=== PATIENT | female | born 1960 | race Caucasian/White ===

== ENCOUNTER 2018-02-26 10:32 | Emergency (ER) | payer BC ==
[2018-02-26] MEDS ORDERED: LEVALBUTEROL 1.25 MG/3 ML NEB ONE (11:09)
[2018-02-26] MEDS ORDERED: ACETAMINOPHEN 325 MG TABLET ONE (11:09)
--- NOTE | 2018-02-26 12:43 | RAD REPORT ---
EXAM DESCRIPTION: RAD - Chest Pa And Lat (2 Views) - 02/26/2018 11:34 am CLINICAL HISTORY: Cough, 1 pack per day smoking history COMPARISON: None. TECHNIQUE: PA and lateral views of the chest were obtained. FINDINGS: The lungs are normal volume. No peripheral mass, consolidation or failure finding. Interst itial markings are mildly prominent believed to be baseline for the patient. Small pericardial fat pa ds are present. Trachea is midline. Heart size is normal and central vasculature is within normal li mits. No pleural effusion or pneumothorax seen. No acute bony finding noted. No aortic abnormality . IMPRESSION: No acute cardiopulmonary process.
--- NOTE | 2018-02-26 12:49 | ER ---
Nurse's Notes [facility] Name: Rula Coronel Age: 57 yrs Sex: Female : 1960 Arrival Date: 02/26/2018 Time: 10:35 Bed 13 Private MD: None, None Diagnosis: Cough;Bronchitis, not specified as acute or chronic Presentation: 02/26 10:40 Presenting complaint: Patient states: Productive cough, runny nose and eyes x 5 days. jl7 Denies shortness of breath. Left wrist pain x 1 day, denies trauma. Transition of care: patient was not received from another setting of care. Onset of symptoms was February 22, 2018. Risk Assessment: Do you want to hurt yourself or someone else? Patient reports no desire to harm self or others. Initial Sepsis Screen: Does the patient meet any 2 criteria? No. Patient's initial sepsis screen is negative. Does the patient have a suspected source of infection? No. Patient's initial sepsis screen is negative. Care prior to arrival: None. 10:40 Method Of Arrival: Ambulatory [facility] 10:40 Acuity: MARITZA 3 jl7 Triage Assessment: 10:44 General: Appears in no apparent distress. uncomfortable, Behavior is calm, cooperative, jl7 appropriate for age. Pain: Complains of pain in left wrist Pain currently is 7 out of 10 on a pain scale. Quality of pain is described as pressure. Historical: - Allergies: 10:44 Codeine; jl7 10:44 Sulfa (Sulfonamide Antibiotics); jl7 10:44 Aspirin; jl7 - Home Meds: 10:44 None [Active]; jl7 - PMHx: 10:44 None; jl7 - PSHx: 10:44 None; jl7 - Immunization history:: Adult Immunizations up to date. - Social history:: Smoking status: Patient uses tobacco products, smokes one pack cigarettes per day. Patient uses alcohol, occasionally. - Ebola Screening: : No symptoms or risks identified at this time. - Family history:: not pertinent. - Hospitalizations: : No recent hospitalization is reported. Screenin:49 Abuse screen: Denies threats or abuse. Nutritional screening: No deficits noted. mb3 Tuberculosis screening: No symptoms or risk factors identified. Fall Risk None identified. Assessment: 10:54 General: Appears in no apparent distress. comfortable, Behavior is calm, cooperative, mb3 appropriate for age. Neuro: Level of Consciousness is awake, alert, obeys commands, Oriented to person, place, time, situation, Appropriate for age. Cardiovascular: Denies chest pain, Heart tones present Capillary refill < 3 seconds Patient's skin is warm and dry. Pulses are all present. Respiratory: Reports cough that is non-productive, Airway is patent Respiratory effort is even, unlabored, Respiratory pattern is regular, symmetrical, Breath sounds are clear bilaterally. GI: No signs and/or symptoms were reported involving the gastrointestinal system. : No signs and/or symptoms were reported regarding the genitourinary system. EENT: Reports nasal congestion. Musculoskeletal: No signs and/or symptoms reported regarding the musculoskeletal system. 11:13 Reassessment: Pt verbalized she didn't really want to take medication or do the mb3 breathing treatment. I ask her why she came to the ER if not for us to treat her, she stated she didn't know why. Pt did verbalize she will try to take pills and will do the breathing treatment. Vital Signs: 10:44 BP 143 / 90; Pulse 100; Resp 18; Temp 99.1; Pulse Ox 96% ; Weight 68.04 kg; Height 5 jl7 ft. 3 in. (160.02 cm); Pain 7/10; 12:54 BP 150 / 86; Pulse 93; Resp 20; Pulse Ox 99% on R/A; mb3 10:44 Body Mass Index 26.57 (68.04 kg, 160.02 cm) jl7 ED Course: 10:35 Patient arrived in ED. mr 10:36 None, None is Private Physician. mr 10:43 Triage completed. jl7 10:44 Arm band placed on right wrist. jl7 10:47 Manny López, RN is Primary Nurse. mb3 10:49 Norris Cano MD is Attending Physician. rn 10:58 Patient has correct armband on for positive identification. Bed in low position. Call mb3 light in reach. Pulse ox on. NIBP on. 11:31 X-ray completed. Patient tolerated procedure well. Patient moved to radiology via sw wheelchair. Patient moved back from radiology. 11:32 XRAY Chest Pa And Lat (2 Views) In Process Unspecified. EDMS 12:55 No provider procedures requiring assistance completed. Patient did not have IV access mb3 during this emergency room visit. Administered Medications: 11:11 Drug: Tylenol 650 mg Route: PO; mb3 12:53 Follow up: Response: No adverse reaction mb3 11:11 Drug: Xopenex 1.25 mg Route: Inhalation; mb3 12:53 Follow up: Response: No adverse reaction mb3 Outcome: 12:49 Discharge ordered by . rn 12:54 Discharged to home ambulatory. mb3 12:54 Condition: stable 12:54 Discharge instructions given to patient, Instructed on discharge instructions, follow up and referral plans. medication usage, benefits of quitting smoking, Demonstrated understanding of instructions, follow-up care, medications, Prescriptions given X 1. 12:55 Patient left the ED. mb3 Signatures: Dispatcher [employer] Ayah Weathers Roman, MD MD rn Warren, Ham Mcgowan RN RN jl7 Manny López RN RN mb3
--- NOTE | 2018-02-26 12:49 | EDPHYS ---
Physician Documentation [facility] Name: Rula Coronel Age: 57 yrs Sex: Female : 1960 Arrival Date: 02/26/2018 Time: 10:35 Bed 13 Private MD: None, None ED Physician Norris Cano HPI: 02/26 11:33 This 57 yrs old Female presents to ER via Ambulatory with complaints of Cough.rn 11:33 The patient or guardian reports cough. Onset: The symptoms/episode began/occurred 5 rn day(s) ago. Severity of symptoms: At their worst the symptoms were mild, in the emergency department the symptoms are unchanged. Associated signs and symptoms: Pertinent positives: rhinorrhea, sore throat. The patient has experienced similar episodes in the past. Reports cough for 5 days, began with runny nose and watery eyes, now gone, cough persists, dry cough, + smoker. . Historical: - Allergies: 10:44 Codeine; jl7 10:44 Sulfa (Sulfonamide Antibiotics); jl7 10:44 Aspirin; jl7 - Home Meds: 10:44 None [Active]; jl7 - PMHx: 10:44 None; jl7 - PSHx: 10:44 None; jl7 - Immunization history:: Adult Immunizations up to date. - Social history:: Smoking status: Patient uses tobacco products, smokes one pack cigarettes per day. Patient uses alcohol, occasionally. - Ebola Screening: : No symptoms or risks identified at this time. - Family history:: not pertinent. - Hospitalizations: : No recent hospitalization is reported. ROS: 11:33 Constitutional: Negative for fever, chills, and weight loss, Eyes: Negative for injury, rn pain, redness, and discharge, Neck: Negative for injury, pain, and swelling, Cardiovascular: Negative for chest pain, palpitations, and edema, Respiratory: + cough, neg sob Abdomen/GI: Negative for abdominal pain, nausea, vomiting, diarrhea, and constipation, MS/Extremity: Negative for injury and deformity, Skin: Negative for injury, rash, and discoloration, Neuro: Negative for headache, weakness, numbness, tingling, and seizure. Exam: 11:33 Constitutional: This is a well developed, well nourished patient who is awake, alert, rn and in no acute distress. Head/Face: Normocephalic, atraumatic. Eyes: bilateral injected sclera, no drainage ENT: mild pharyngeal erythema, no swelling/exudate/stridor Neck: Trachea midline, no thyromegaly or masses palpated, and no cervical lymphadenopathy. Supple, full range of motion without nuchal rigidity, or vertebral point tenderness. No Meningismus. Cardiovascular: Regular rate and rhythm with a normal S1 and S2. No gallops, murmurs, or rubs. Normal PMI, no JVD. No pulse deficits. Respiratory: Lungs have equal breath sounds bilaterally, clear to auscultation and percussion. No rales, rhonchi or wheezes noted. No increased work of breathing, no retractions or nasal flaring. MS/ Extremity: Pulses equal, no cyanosis. Neurovascular intact. Full, normal range of motion. Equal circumference. Neuro: Awake and alert, GCS 15, oriented to person, place, time, and situation. Cranial nerves II-XII grossly intact. Motor strength 5/5 in all extremities. Sensory grossly intact. Cerebellar exam normal. Normal gait. Vital Signs: 10:44 BP 143 / 90; Pulse 100; Resp 18; Temp 99.1; Pulse Ox 96% ; Weight 68.04 kg; Height 5 jl7 ft. 3 in. (160.02 cm); Pain 7/10; 12:54 BP 150 / 86; Pulse 93; Resp 20; Pulse Ox 99% on R/A; mb3 10:44 Body Mass Index 26.57 (68.04 kg, 160.02 cm) jl7 MDM: 10:49 Patient medically screened. rn 12:47 Differential Diagnosis: Bronchitis Upper Respiratory Infection Sinusitis Viral Syndrome rn Pneumonia. Data reviewed: vital signs, nurses notes, radiologic studies, plain films, and as a result, I will discharge patient. Counseling: I had a detailed discussion with the patient and/or guardian regarding: the historical points, exam findings, and any diagnostic results supporting the discharge/admit diagnosis, radiology results, the need for outpatient follow up, to return to the emergency department if symptoms worsen or persist or if there are any questions or concerns that arise at home. Response to treatment: the patient's symptoms have mildly improved after treatment, and as a result, I will discharge patient. Special discussion: I discussed with the patient/guardian in detail that at this point there is no indication for admission to the hospital. It is understood, however, that if the symptoms persist or worsen the patient needs to return immediately for re-evaluation. 02/26 10:54 Order name: XRAY Chest Pa And Lat (2 Views); Complete Time: 12:46 rn Administered Medications: 11:11 Drug: Tylenol 650 mg Route: PO; mb3 12:53 Follow up: Response: No adverse reaction mb3 11:11 Drug: Xopenex 1.25 mg Route: Inhalation; mb3 12:53 Follow up: Response: No adverse reaction mb3 Disposition: 02/26/18 12:49 Discharged to Home. Impression: Cough, Bronchitis, not specified as acute or chronic. - Condition is Stable. - Discharge Instructions: Upper Respiratory Infection, Adult, [id number], Cough, Adult. - Prescriptions for Zithromax Z- Christ 250 mg Oral Tablet - take 1 tablet by ORAL route as directed for 5 days Day 1 - take two (2) tablets one time. Day 2, 3, 4 , 5 take one (1) tablet once daily.; 6 tablet. - Medication Reconciliation Form, Thank You Letter, Antibiotic Education, Prescription Opioid Use form. - Follow up: Private Physician; When: As needed; Reason: Recheck today's complaints, Re-evaluation by your physician. - Problem is an ongoing problem. - Symptoms have improved. Signatures: Dispatcher [employer] EDNorris Vasquez MD MD rn Leal, Jahala, RN RN jl7 Manny López RN RN mb3 Corrections: (The following items were deleted from the chart) 12:55 12:49 02/26/2018 12:49 Discharged to Home. Impression: Cough; Bronchitis, not specified mb3 as acute or chronic. Condition is Stable. Forms are Medication Reconciliation Form, Thank You Letter, Antibiotic Education, Prescription Opioid Use. Follow up: Private Physician; When: As needed; Reason: Recheck today's complaints, Re-evaluation by your physician. Problem is an ongoing problem. Symptoms have improved. rn
== END 2018-02-26 12:55 | disposition home or self-care (01) ==
LOC: ER 10:32
DX: R05 Cough (principal); J40 Bronchitis, not specified as acute or chronic; F17.210 Nicotine dependence, cigarettes, uncomplicated; Z88.6 Allergy status to analgesic agent; Z88.5 Allergy status to narcotic agent; Z88.2 Allergy status to sulfonamides
CPT/HCPCS: 71046; 99284